=== PATIENT | female | born 2000 | race African-American/Black ===

== ENCOUNTER 2022-11-07 23:46 | Inpatient (IN) ==
[2022-11-08] MEDS ORDERED: OXYTOCIN/LR 20 UNIT/1,000 ML BAG IV ONE (00:01)
[2022-11-08] MEDS ORDERED: CARBOPROST TROMETHAMINE 250 MCG/ML AMP IM PRN (00:01)
[2022-11-08] MEDS ORDERED: METHYLERGONOVINE 0.2 MG/1 ML AMP IM PRN (00:01)
[2022-11-08] MEDS ORDERED: BUTORPHANOL 2 MG/ML VIAL IV PRN (00:01)
[2022-11-08] MEDS ORDERED: TRANEXAMIC ACID 1,000 MG in SODIUM CHLORIDE 0.9% 100 ML IV PRN (00:01)
[2022-11-08] MEDS ORDERED: miSOPROStoL 200 MCG TABLET RECTAL PRN (00:01)
[2022-11-08 00:49] LABS: Basophils % 0.1 % (0.0-0.8); Eosinophils % 0.5 % (0.00-10.9); Hematocrit 35.7 VOL% (35.7-47.0); Hemoglobin 12.7 GM/DL (12.0-16.0); Immature Granulocytes % 1.2 %; Immature Granulocytes Absolute 0.09 #; Lymphocytes # 2.3 10*3/uL (1.4-4.0); Lymphocytes % 32.1 % (21.3-54.2); Mean Corpuscular HGB Conc 35.6 GM/DL (32-36); Mean Corpuscular Volume 90.8 FL (87-102); Mean Platelet Volume 10.7 FL (9.6-12.0); Monocytes # 0.7 10*3/uL (0.11-0.8); Monocytes % 9.3 % (1.7-12.7); Neutrophils % 56.8 % (38.7-73.9); Platelet Count 209 T/CUMM (130-400); Red Blood Count 3.93 MC/CUMM (3.8-5.5); Red Cell Distribution Width 13.2 % (9.3-17.3); White Blood Count 7.3 T/CUMM (4-12)
[2022-11-08 00:53] LABS: INR 0.9; PT Patient Result 9.5 SECS (10.1-12.1); Partial Thromboplastin Time 27.5 SECS (23.7-32.9)
[2022-11-08 01:08] LABS: Alanine Aminotransferase 15 U/L (13-56); Albumin 2.6 G/DL (3.4-5.0); Alkaline Phosphatase 168 U/L (45-117); Aspartate Amino Transferase 19 U/L (0-37); Bilirubin,Direct < 0.100 MG/DL (0.0-0.20); Bilirubin,Total < 0.39 MG/DL (0.20-1.00); Blood Urea Nitrogen 5 MG/DL (7-18); Calcium 8.6 MG/DL (8.5-10.1); Carbon Dioxide 23 MMOL/L (21-32); Chloride 107 MMOL/L (98-107); Glucose 129 MG/DL (74-106); Osmolality,Calculated 273.7 MOS/KG (273-304); Potassium 3.6 MMOL/L (3.5-5.1); Sodium 138 MMOL/L (136-145); Total Protein 6.7 G/DL (6.4-8.2); Uric Acid 3.4 MG/DL (2.6-6.0)
[2022-11-08] MEDS ORDERED: AMPICILLIN INJ 2,000 MG in SODIUM CHLORIDE 0.9% 100 ML IV ONE (04:00)
[2022-11-08] MEDS ORDERED: OXYTOCIN/LR 30 UNIT/1,000 ML BAG IV ONE (04:40)
[2022-11-08] MEDS: LACTATED RINGERS 1,000 ML IV SCH ×2 (04:45→19:28)
[2022-11-08 05:56] LABS: Bacteria,Urine Occasional /HPF (Few); Calcium Oxalate Crystals,Urine Few /HPF (Few); Mucus,Urine Few /LPF (Occasional); RBC,Urine 1 /HPF (0-4); Squamous Epithelial Cell,Urine Occasional /HPF (0-10)
[2022-11-08 05:57] LABS: Bilirubin,Urine Negative (Negative); Blood, Urine Negative (Negative); Glucose,Urine (UA) Negative (Negative); Ketones,Urine Negative (Negative); Nitrite,Urine Negative (Negative); Protein,Urine Negative (Negative); Urine Appearance Clear (Clear); Urine Color Yellow (Yellow); Urine Specific Gravity > 1.030 (1.001-1.035); Urine Urobilinogen 0.2 eU/dL (<2.0)
[2022-11-08 06:15] LABS: Barbiturates Screen,Urine Negative (Negative); Benzodiazepines Screen,Urine Negative (Negative); Cannabinoid Screen,Urine Positive (Negative); Opiate Screen,Urine Negative (Negative); Phencyclidine Screen,Urine Negative (Negative); Protein/Creatinine Ratio,Urine 0.2 RATIO
[2022-11-08] MEDS: AMPICILLIN INJ 1,000 MG in SODIUM CHLORIDE 0.9% 100 ML IV SCH ×4 (08:02→19:29)
[2022-11-08] MEDS ORDERED: OXYTOCIN/LR 20 UNIT/1,000 ML BAG IV SCH (09:30)
[2022-11-08] MEDS: ONDANSETRON 4 MG/2 ML VIAL IV PRN ×2 (12:45→19:45)
[2022-11-08] MEDS: MEPERIDINE 50 MG/1 ML VIAL IV PRN ×2 (12:47→17:35)
[2022-11-09] MEDS: AMPICILLIN INJ 1,000 MG in SODIUM CHLORIDE 0.9% 100 ML IV SCH ×3 (00:16→07:55)
[2022-11-09] MEDS: ONDANSETRON 4 MG/2 ML VIAL IV PRN ×2 (04:23→12:30)
[2022-11-09] MEDS: MEPERIDINE 50 MG/1 ML VIAL IV PRN (04:23)
[2022-11-09] MEDS ORDERED: diphenhydrAMINE 50 MG/1 ML VIAL IV PRN ×2 (05:52)
[2022-11-09] MEDS ORDERED: ePHEDrine 50 MG/ML VIAL IV PRN (05:52)
[2022-11-09] MEDS ORDERED: PROMETHAZINE 25 MG/1 ML VIAL IM ONE (05:52)
[2022-11-09] MEDS ORDERED: NALOXONE 0.4 MG/ML VIAL IV PRN (05:52)
[2022-11-09] MEDS ORDERED: hydrOXYzine HCL 25 MG/1 ML VIAL IM PRN (05:52)
[2022-11-09] MEDS ORDERED: CITRIC ACID/SODIUM CITRATE 30 ML UDCUP PO ONE (05:54)
[2022-11-09] MEDS ORDERED: FAMOTIDINE 20 MG/2 ML VIAL IV ONE (05:54)
[2022-11-09] MEDS ORDERED: fentaNYL 2 MCG/ROPIV 0.2% EPID 100 ML EPIDURAL SCH (06:00)
[2022-11-09] MEDS ORDERED: LACTATED RINGERS 1,000 ML IV SCH (06:00)
[2022-11-09] MEDS: LACTATED RINGERS 1,000 ML IV SCH (06:48)
[2022-11-09 08:27] LABS: Mucus,Urine Occasional /LPF (Occasional); RBC,Urine <1 /HPF (0-4); Squamous Epithelial Cell,Urine Occasional /HPF (0-10)
[2022-11-09 08:28] LABS: Bilirubin,Urine Negative (Negative); Blood, Urine Negative (Negative); Glucose,Urine (UA) Negative (Negative); Ketones,Urine >160 mg/dL (Negative); Nitrite,Urine Negative (Negative); Protein,Urine Negative (Negative); Urine Appearance Clear (Clear); Urine Color Yellow (Yellow); Urine Urobilinogen 0.2 eU/dL (<2.0); Urine pH 6.5 (4.5-8.0)
[2022-11-09 11:18] LABS: Cord Venous Blood PCO2 48.9 MMHG; Cord Venous Blood PO2 27.4
[2022-11-09] MEDS ORDERED: ACETAMINOPHEN 500 MG TABLET PO ONE (12:36)
[2022-11-09] MEDS ORDERED: NIFEdipine 10 MG CAPSULE PO ONE (12:55)
[2022-11-09] MEDS ORDERED: MEASLES/MUMPS/RUBELLA VACCINE 0.5 ML VIAL SUBCUT ONE (14:33)
[2022-11-09] MEDS ORDERED: WITCH HAZEL PADS 100/JAR TOP PRN (14:33)
[2022-11-09] MEDS ORDERED: DIPH/TET/ACEL PERT BOOSTER VACCINE 0.5 ML VIAL IM ONE (14:33)
[2022-11-09] MEDS ORDERED: BENZOCAINE 20%/MENTHOL 0.5% SPRAY 56 GM CAN TOP PRN (14:33)
[2022-11-09] MEDS ORDERED: BISACODYL 10 MG SUPP RECTAL PRN (14:33)
[2022-11-09] MEDS ORDERED: RHO(D) IMMUNE GLOBULIN 300 MCG SYRINGE IM ONE (14:33)
[2022-11-09] MEDS ORDERED: oxyCODONE/ACETAMINOPHEN 5-325 MG TABLET PO PRN ×2 (14:33)
[2022-11-09] MEDS ORDERED: ACETAMINOPHEN 325 MG TABLET PO PRN (14:33)
[2022-11-09] MEDS ORDERED: HYDROCORTISONE 2.5% RECTAL CREAM 30 GM TUBE TOP PRN (14:33)
[2022-11-09] MEDS ORDERED: LANOLIN 50% CREAM 0.3 OZ TUBE TOP PRN (14:33)
[2022-11-09] MEDS ORDERED: OXYTOCIN/LR 20 UNIT/1,000 ML BAG IV ONE (14:33)
[2022-11-09] MEDS: IBUPROFEN 800 MG TABLET PO PRN (16:07)
[2022-11-09] MEDS: DOCUSATE SODIUM 100 MG CAPSULE PO SCH (20:53)
[2022-11-10 06:20] LABS: Basophils % 0.4 % (0.0-0.8); Eosinophils # 0.1 10*3/uL (0.0-0.87); Eosinophils % 0.5 % (0.00-10.9); Hematocrit 35.4 VOL% (35.7-47.0); Hemoglobin 11.9 GM/DL (12.0-16.0); Immature Granulocytes % 0.3 %; Immature Granulocytes Absolute 0.03 #; Lymphocytes # 2.3 10*3/uL (1.4-4.0); Lymphocytes % 20.6 % (21.3-54.2); Mean Corpuscular HGB Conc 33.6 GM/DL (32-36); Mean Corpuscular Volume 91.5 FL (87-102); Mean Platelet Volume 10.5 FL (9.6-12.0); Monocytes # 1.1 10*3/uL (0.11-0.8); Monocytes % 10.4 % (1.7-12.7); Neutrophils % 67.8 % (38.7-73.9); Platelet Count 198 T/CUMM (130-400); Red Blood Count 3.87 MC/CUMM (3.8-5.5); Red Cell Distribution Width 13.4 % (9.3-17.3); White Blood Count 10.9 T/CUMM (4-12)
[2022-11-10] MEDS: IBUPROFEN 800 MG TABLET PO PRN ×2 (06:57→14:05)
[2022-11-10] MEDS: DOCUSATE SODIUM 100 MG CAPSULE PO SCH ×2 (08:06→21:39)
[2022-11-10] MEDS ORDERED: ONDANSETRON 4 MG TABLET PO PRN (08:30)
[2022-11-11 07:18] VITALS: BP 135/77
[2022-11-11] MEDS: DOCUSATE SODIUM 100 MG CAPSULE PO SCH (08:30)
[2022-11-11] MEDS ORDERED: MULTIVITAMIN (PRENATAL) TABLET PO SCH (09:00)
== END 2022-11-11 11:45 | disposition home or self-care (01) | DRG 560 ==
LOC: N.LD 23:46 → N.OB 11-09 14:20
PROVIDERS: ADMIT Obstetrics & Gynecology; ATTEND Obstetrics & Gynecology